=== PATIENT | male | born 1970 | race Caucasian/White ===

== ENCOUNTER 2025-01-30 18:49 | Emergency (ER) | payer OTHER ==
[~2025-01-30] VITALS: Ht 188 cm; Wt 95.3 kg
[2025-01-30 19:13] VITALS: TEMP 98.5
[2025-01-30 21:01] VITALS: BP 115/75; O2SAT 97
== END 2025-01-30 20:55 | disposition home or self-care (01) ==
LOC: ER 19:00
DX: S91.002D Unspecified open wound, left ankle, subsequent encounter (principal); X58.XXXD Exposure to other specified factors, subsequent encounter; I73.9 Peripheral vascular disease, unspecified; Z48.00 Encounter for change or removal of nonsurgical wound dressing; Z88.1 Allergy status to other antibiotic agents
CPT/HCPCS: 73610-TC